=== PATIENT | female | born 1935 | race Caucasian/White ===

== ENCOUNTER 2024-07-04 19:22 | Observation (INO) | payer MEDICARE, SELFPAY ==
[2024-07-04] VITALS (8 sets, daily range): BP systolic 120–173; BP diastolic 61–85; PULSE 69–106; RESP 12–18; TEMP 36.4–37; O2SAT 97–99; BMI 26.6
--- NOTE | ~2024-07-04 | XR_ITS ---
EXAMINATION: XR HIP, RIGHT CLINICAL INFORMATION: Fall. Pain. COMPARISON: None available. TECHNIQUE: Two views of the right hip. FINDINGS: The bony structures are osteopenic. There is a right hip prosthesis in place and intact. There is no evidence for acute fracture. There is lower lumbar degenerative change. The soft tissues are unremarkable. XR/XR hip RT w PEL1V IMPRESSION: Intact right hip prosthesis. No evidence for acute fracture. Electronically signed by: Varun Dempsey MD 07/05/2024 12:02 AM EDT
--- NOTE | ~2024-07-04 | CT_ITS ---
EXAMINATION: CT HEAD WITHOUT CONTRAST CLINICAL INFORMATION: Syncope and fall with head injury. COMPARISON: None available. TECHNIQUE: Contiguous axial imaging was performed from the skull base to vertex without intravenous administration of contrast. Multiplanar reformatted images are submitted. This CT examination was performed using dose optimization techniques as appropriate, variously including the following: *Automated exposure control *Adjustment of mA and/or kV according to patient size (this includes techniques or standardized protocols for targeted exams where dose is matched to indication/reason for exam; i.e. extremities or head) *Use of iterative reconstruction technique DLP: 1069 mGy-cm (head and cervical spine) FINDINGS: There is no acute intracranial hemorrhage or evidence of territorial infarction. No abnormal mass effect or midline shift is seen. Barry to white matter differentiation is well preserved. There is marked patchy low attenuation change within the periventricular white matter spaces. The ventricles and sulci are widened, commensurate with advanced age. No extra-axial fluid collections are identified. The calvarium and scalp soft tissues are normal. The middle ear cavity and mastoid air cells are clear. The visualized paranasal sinuses are clear. CT/CT cervical spine wo IV con IMPRESSION: No acute intracranial pathology. EXAMINATION: CT CERVICAL SPINE WITHOUT CONTRAST CLINICAL INFORMATION: Syncope and fall with head injury. COMPARISON: None available. TECHNIQUE: Contiguous axial imaging was performed through the cervical spine without intravenous administration of contrast. Multiplanar reformatted images are submitted. This CT examination was performed using dose optimization techniques as appropriate, variously including the following: *Automated exposure control *Adjustment of mA and/or kV according to patient size (this includes techniques or standardized protocols for targeted exams where dose is matched to indication/reason for exam; i.e. extremities or head) *Use of iterative reconstruction technique DLP: As above FINDINGS: Vertebral body heights and alignment are normal. The disc spaces are well-maintained. There is ossification of the posterior longitudinal ligament. No acute fracture or spondylolisthesis is seen. There is multi-level mild cervical spondylosis. The posterior elements are intact. There is multi-level cervical facet arthropathy. There is no prevertebral soft tissue swelling. The dens is intact. The bilateral lung apices are clear. IMPRESSION: 1. No acute fracture or spondylolisthesis is seen. 2. The cervical disc spaces are well-maintained. 3. There is multi-level cervical endplate and facet arthropathy. Fleischner guidelines were followed. Electronically signed by: Trey Henderson MD 07/04/2024 09:53 PM EDT RP
--- NOTE | ~2024-07-04 | CT_ITS ---
EXAMINATION: CT FACIAL BONES WITHOUT CONTRAST CLINICAL INFORMATION: Fall. Head injury. COMPARISON: None available. TECHNIQUE: Noncontrast computed tomography of the facial bones was performed. This CT examination was performed using dose optimization techniques as appropriate, variously including the following: *Automated exposure control *Adjustment of mA and/or kV according to patient size (this includes techniques or standardized protocols for targeted exams where dose is matched to indication/reason for exam; i.e. extremities or head) *Use of iterative reconstruction technique DLP: 1069 mGy-cm FINDINGS: There is no acute facial bone fracture. The mandible is intact. Temporomandibular joints are intact. There is mild deformity of the left nasal bone without overlying soft tissue swelling or fluid within the nasal cavities. This deformity is likely chronic. The paranasal sinuses are well aerated. The nasal septum is deviated towards the right side. The ocular lenses are surgically absent. The orbits are otherwise within normal limits bilaterally. The visualized calvarium is intact. Visualized mastoid air cells are clear. CT/CT facial bones wo IV con IMPRESSION: No acute facial bone fracture. Electronically signed by: Alireza Vyas DO 07/04/2024 10:41 PM EDT
--- NOTE | 2024-07-04 19:56 | ECG_ITS ---
Test Reason : SYNC Blood Pressure : / mmHG Vent. Rate : 069 BPM Atrial Rate : 069 BPM P-R Int : 226 ms QRS Dur : 064 ms QT Int : 384 ms P-R-T Axes : 072 012 017 degrees QTc Int : 411 ms Sinus rhythm with 1st degree A-V block with frequent Premature ventricular complexes Low voltage QRS Septal infarct , age undetermined Abnormal ECG No previous ECGs available Referred By: Eugenia Baker Electronically Signed By:AUSTIN SEYMOUR
--- NOTE | 2024-07-04 20:12 | ED.SYNCOPE ---
HPI - Syncope General Chief Complaint: Syncope Stated Complaint: Syncope, +loc, confusion while waking up Time Seen by Provider: 07/04/24 19:55 Source: patient and EMS Mode of arrival: EMS Limitations: no limitations History of Present Illness HPI narrative: Patient is an 88-year-old female who presents emergency department via EMS coming from [facility], she was walking along a ramp and staff reportedly saw her stop, appeared out of it, and ultimately syncopized falling to the ground landing face down. She had loss of consciousness for couple of minutes. Is reportedly not on any anticoagulants. On EMS arrival she was confused but alert with a GCS of 14. At this time GCS is 15. She offers no physical complaints at this time aside from a mild posterior headache, denies having any precipitating symptoms. Denies any current or recent dizziness, lightheadedness, neck pain, neck stiffness, chest pain, shortness of breath, palpitations, numbness or tingling of the extremities, nausea, vomiting, abdominal pain, genitourinary symptoms. She admits that she has a history of ?low blood pressure?, states she is not on any medications to increase this in any way. She reports that she had breakfast and lunch today, but did not have dinner yet, she was watching the news station and lost track of time. Related Data Allergies Allergy/AdvReac Type Severity Reaction Status Date / Time mold Allergy Itchy Eyes Verified 07/04/24 19:48 Penicillins Allergy Hives Verified 07/04/24 19:48 Review of Systems Review of Systems: Yes all other systems are reviewed and are negative [facility] Past Medical History Attestation statement: The following information was validated with the patient. Source: old records reviewed Social History Social History Alcohol intake: current Alcohol intake frequency: holidays/special occasions only Smoked in Last 30 Days: No Use of substances other than those prescribed or required for medical reasons: No Advance Directives: Yes Advance Directives Information Provided: Yes Advance Directives on File: No Do you have a plan to hurt others: No Plan Physical Exam Vital Signs: Vital Signs: Last Vital Signs Temp 98.5 F 07/05/24 00:03 Pulse 71 07/05/24 00:03 Resp 12 07/05/24 00:03 BP 114/57 L 07/05/24 00:03 Pulse Ox 97 07/05/24 00:03 O2 Del Method Room Air 07/05/24 00:03 BMI result Body Mass Index 26.6 Appearance: Alert.?Oriented to person, place and time. No acute distress.?Normal affect. Head: Normocephalic, atraumatic Eyes: Pupils equal, round and reactive to light.? No periorbital ecchymosis ENT: Pharynx normal.??No tenderness upon palpation over the nasal bridge. No mastoid tenderness, negative nowak sign. TM normal bilaterally. Neck: Normal inspection.? Neck supple.??No midline cervical spine tenderness, step-offs, deformities. CVS: Heart sounds normal. Normal heart rate and rhythm.? Pulses normal.?? Respiratory: No respiratory distress.? Lung sounds clear to auscultation bilaterally?? Abdomen: Soft and non-tender. Normoactive bowel sounds. ?? Skin: Skin warm and dry.? Normal skin color.? Extremities: No lower extremity edema.? No calf ttp? Neuro: Moves all extremities spontaneously. Sensation intact bilaterally. CN II-XII intact. No focal neuro deficits. Medical Decision Making Medical Decision Making [facility] Narrative: Patient is an 88-year-old female with past medical history of essential thrombocytosis, left knee replacement, right hip replacement who presents to the emergency department for evaluation after a syncopal episode without precipitating symptoms as per HPI. She offers no physical complaints and her physical examination is benign. GCS is 15. She has no focal neurological deficits. Given age and syncopal episode with mechanism of injury plan to obtain CT head cervical spine and facial bones to exclude fracture, subluxation, ICH, SDH. Will obtain CBC to evaluate for leukocytosis/ anemia, CMP and lipase to evaluate for abnormal electrolytes /abnormal renal function/ abnormal hepatic/biliary function, EKG and troponin to evaluate for ischemia/ACS. The history is concerning as there is an absence of prodrome of symptoms, she was ambulatory when it occurred. Differential Diagnosis Differential Diagnoses: The differential diagnosis associated with the presentation includes (Arrhythmia, ACS, PE, aortic stenosis, SAH, CVA, orthostatic hypotension, vasovagal) Admission/Observation Consideration of admission/observation: Escalation of care including admission/observation considered (See narrative above and course narrative for further detail) Consult Healthcare Provider Management of the patient was discussed with: Hospitalist Dr. Bebeto waite for syncope Lab Data [facility] Lab Attestation statement: I reviewed the patient's lab results. CBC with leukopenia, macrocytic anemia, no thrombocytopenia. No electrolyte derangement. BUN mildly elevated at 19, creatinine within normal range. Magnesium is normal. LFTs overall unremarkable, alk-phos 34. High sensitive troponin below detectable limits. BNP 96 not consistent with CHF. Urinalysis without evidence of infection or microscopic hematuria. Viral serologies are negative 07/04/24 20:23 07/04/24 20:23 Labs: Lab Results 07/04/24 07/04/24 07/04/24 Range/Units 20:17 20:23 21:41 WBC 4.1 L (4.8-10.8) X10*3/uL RBC 3.14 L (4.20-5.50) X10*6/uL Hgb 12.5 (12.0-16.0) g/dl Hct 36.1 L (37.0-47.0) % MCV 115.0 H (80.0-98.0) fL MCH 39.8 H (27.0-33.0) pg MCHC 34.6 (31.0-35.0) g/dl RDW 12.4 (11.0-16.0) % Plt Count 241 (160-400) X10*3/uL MPV 8.9 L (9.4-12.3) fL Immature Gran % (Auto) 0.2 (0.0-0.4) % Neut % (Auto) 59.8 (45-73) % Lymph % (Auto) 28.6 (20-40) % [place] % (Auto) 10.2 (2-11) % Eos % (Auto) 1.0 (0-4) % Baso % (Auto) 0.2 (0-2) % Lymph # (Auto) 1.2 (1.2-4.9) X10*3/uL [place] # (Auto) 0.4 (0.1-1.2) X10*3/uL Eos # (Auto) 0.0 (0.0-0.4) X10*3/uL Baso # (Auto) 0.0 (0.0-0.2) X10*3/uL Abs Immat Gran (auto) 0.01 (0.00-0.03) X10*3/uL Absolute Neuts (auto) 2.5 (2.0-8.3) x10*3/uL Absolute Nucleated RBC 0.000 (0.0-0.012) X10*3/uL Nucleated RBC % (auto) 0.0 (0.0-0.2) /100WBC PT 10.6 L (10.9-12.4) SEC INR 0.9 (0.9-1.1) Sodium 138 (135-145) mmol/L Potassium 3.7 (3.3-5.1) mmol/L Chloride 106 (96-108) mmol/L Carbon Dioxide 26 (22-29) mmol/L Anion Gap 10 L (12-20) BUN 19 H (9-16) mg/dL Creatinine 0.65 (0.5-1.4) mg/dL Estim Creat Clear Calc 56.4 Estimated GFR > 60 Random Glucose 95 (60-115) mg/dL Calcium 9.5 (8.4-10.2) mg/dL Magnesium 2.1 (1.6-2.6) mg/dL Total Bilirubin 0.3 (0.0-1.0) mg/dL AST 21 (5-31) U/L ALT 14 (0-31) U/L Alkaline Phosphatase 34 L (39-117) U/L Troponin I High Sens < 2.7 (<3.5-17.0) ng/L B-Natriuretic Peptide 96 (<100) pg/mL Total Protein 6.7 (6.5-8.0) g/dL Albumin 3.8 (3.5-5.0) g/dL Lipase 27 (8-78) U/L Urine Color Yellow Urine Appearance Clear Urine pH 7.0 (5.0-9.0) Ur Specific [place] <= 1.005 (1.005-1.025) Urine Protein Negative (Neg-Trace) mg/dL Urine Glucose (UA) Negative (Negative) mg/dL Urine Ketones Negative (Negative) mg/dL Urine Blood Negative (Negative) Urine Nitrite Negative (Negative) Ur Leukocyte Esterase Trace H (Negative) Urine RBC 0-2 (0-2) /HPF Urine WBC 0-5 (0-5) /HPF Ur Squamous Epith Cells 0-2 (0-2) /HPF Urine Bacteria None Seen (None Seen) Hyaline Casts 0-2 (0-2) /LPF Influenza Type A (PCR) NEGATIVE (Negative) Influenza Type B (PCR) NEGATIVE (Negative) RSV RNA Qual (PCR) NEGATIVE (Negative) SARS-CoV-2 RNA (RT-PCR) NEGATIVE (Negative) Independent Interpretation I performed an independent interpretation of an: EKG and CT Scan (No ICH) Interpretation: Rate: 69 Rhythm:? Sinus rhythm first-degree AV block, PVCs, poor R-wave progression V1-V2 Normal P waves.? Prolonged KALA; 226ms.?? Normal QRS complex.?? ST T wave :??No ST elevation, no ST depression qTC: 411ms prior studies:? Prior available for review The study has been interpreted contemporaneously by me. Radiology Impression Discussion of test interpretation with radiology: I have reviewed the radiologist's reading. Radiologist Impression: CT/CT head/brain wo IV con IMPRESSION: No acute intracranial pathology. IMPRESSION: 1. No acute fracture or spondylolisthesis is seen. 2. The cervical disc spaces are well-maintained. 3. There is multi-level cervical endplate and facet arthropathy. CT/CT facial bones wo IV con IMPRESSION: No acute facial bone fracture. XR/XR hip RT w PEL1V IMPRESSION: Intact right hip prosthesis. No evidence for acute fracture. Independent Historian Clinical information obtained from an independent historian. History obtained from or confirmed by: EMS and Other (Daughter) Discharge Plan Discharge Clinical Impression: Syncope Patient Disposition: Admitted As Inpatient Print Language: Occitan
[2024-07-04 20:30] LABS: MANUAL DIFF FLAG NO
[2024-07-04 20:35] LABS: Basophils Percent Auto 0.2 % (0-2); Hematocrit 36.1 % (37.0-47.0); Hemoglobin 12.5 g/dl (12.0-16.0); Imm Gran Abs Auto 0.01 X10*3/uL (0.00-0.03); Imm Gran Pct Auto 0.2 % (0.0-0.4); Lymphocytes Absolute Auto 1.2 X10*3/uL (1.2-4.9); Lymphocytes Percent Auto 28.6 % (20-40); Mean Corpuscular HGB Conc 34.6 g/dl (31.0-35.0); Mean Corpuscular Hemoglobin 39.8 pg (27.0-33.0); Mean Platelet Volume 8.9 fL (9.4-12.3); Monocytes Absolute Auto 0.4 X10*3/uL (0.1-1.2); Monocytes Percent Auto 10.2 % (2-11); Neutrophils Absolute Auto 2.5 x10*3/uL (2.0-8.3); Neutrophils Percent Auto 59.8 % (45-73); Platelet Count 241 X10*3/uL (160-400); Red Blood Count 3.14 X10*6/uL (4.20-5.50); Red Cell Distribution Width 12.4 % (11.0-16.0); White Blood Count 4.1 X10*3/uL (4.8-10.8)
[2024-07-04 20:43] LABS: INTERNATIONAL NORM RATIO 0.9 (0.9-1.1); Prothrombin Time 10.6 SEC (10.9-12.4)
[2024-07-04 20:55] LABS: Alanine Aminotransferase 14 U/L (0-31); Albumin Level 3.8 g/dL (3.5-5.0); Alkaline Phosphatase 34 U/L (39-117); Anion Gap 10 (12-20); Aspartate Amino Transferase 21 U/L (5-31); Bilirubin Total 0.3 mg/dL (0.0-1.0); Blood Urea Nitrogen 19 mg/dL (9-16); Calcium 9.5 mg/dL (8.4-10.2); Carbon Dioxide 26 mmol/L (22-29); Chloride 106 mmol/L (96-108); Creatinine Clr Calc Pharmacy 56.4; Estimated Glomerular Filt Rate > 60; Glucose Random 95 mg/dL (60-115); Lipase 27 U/L (8-78); Magnesium 2.1 mg/dL (1.6-2.6); Potassium 3.7 mmol/L (3.3-5.1); Sodium 138 mmol/L (135-145); Total Protein 6.7 g/dL (6.5-8.0)
[2024-07-04 20:58] LABS: B Type Natriuretic Peptide 96 pg/mL (<100)
[2024-07-04 21:10] LABS: Troponin-I High Sensitivity < 2.7 ng/L (<3.5-17.0)
[2024-07-04 21:27] LABS: Influenza A PCR NEGATIVE (Negative); Influenza B PCR NEGATIVE (Negative); Resp Syncy Virus RNA Qual PCR NEGATIVE (Negative); SARS COV2 PCR INHOUSE NEGATIVE (Negative)
[2024-07-04 21:54] LABS: Appearance Urine Clear; Color Urine Yellow; Glucose Urine UA Negative (Negative); Leukocyte Esterase Urine Trace (Negative); Nitrite Urine Negative (Negative); Specific Gravity - Urine <= 1.005 (1.005-1.025); UMIC TRIGGER UACC YES; Urine Blood Negative (Negative); Urine Ketones Negative (Negative); Urine Protein Negative (Neg-Trace)
[2024-07-04 21:59] LABS: Bacteria Urine None Seen (None Seen); Hyaline Casts Urine 0-2 /LPF (0-2); RBC Urine 0-2 /HPF (0-2); Squamous Epithelial Cell Urine 0-2 /HPF (0-2); WBC Urine 0-5 /HPF (0-5)
--- NOTE | 2024-07-04 22:45 | PC.NURSE ---
Patient ambulated to bathroom with steady gait. pt reports some slight dizziness. Patient reports tenderness to right buttocks. MD aware
--- NOTE | 2024-07-04 23:43 | PC.NURSE ---
this rn assumed care of pt, pt resting in stretcher, no acute distress noted, pt returned from CT at this time.
[2024-07-05] VITALS (10 sets, daily range): BP systolic 110–139; BP diastolic 43–66; PULSE 67–89; RESP 12–20; TEMP 36.3–37.2; O2SAT 92–98; BMI 26.6; BMI 28.6
--- NOTE | 2024-07-05 01:04 | P.HPHOSP_ITS ---
History of Present Illness Date of Service: 07/05/24 Chief Complaint: Syncope This is a 88-year-old female with pertinent history of essential thrombocytosis, left knee replacement, right hip replacement, mood disorder who presents to the emergency department for evaluation after syncopal episode. Patient lives at independent living facility. She states that she was walking along a ramp and next thing she knew she was on the floor. Staff reportedly saw her passing out and falling on the floor. Regain consciousness without any confusion. No jerking movement of extremities. She denied dizziness or lightheadedness prior to the fall. No chest pain or palpitations prior to the fall. No vomiting, diarrhea or fluid loss. Denies poor p.o. intake. No fever, chills, shortness of breath, abdominal pain, changes in urinary or bowel habits. In the emergency department, orthostatic vital signs noted to be positive. Review of Systems 2 Constitutional: Constitutional: Reports no additional constitutional complaints Cardiovascular: Cardiovascular: Reports no additional cardiovascular complaints and Reports syncope Respiratory: Respiratory: Reports no additional respiratory complaints Gastrointestinal: Gastrointestinal: Reports no additional gastrointestinal complaints Genitourinary: Genitourinary: Reports no additional female genitourinary complaints Neurologic: Reports syncope [facility] Medical History Mood disorder Essential thrombocytosis Pertinent family history: No family history of early CAD Social History Alcohol intake: current Alcohol intake frequency: holidays/special occasions only Patient Tobacco Use Status: Never used Tobacco Meds Allergies Allergy/AdvReac Type Severity Reaction Status Date / Time mold Allergy Itchy Eyes Verified 07/04/24 19:48 Penicillins Allergy Hives Verified 07/04/24 19:48 Physical Exam 2 Vital Signs and Narrative: Vital Signs: Last Vital Signs Temp 98.5 F 07/05/24 00:03 Pulse 71 07/05/24 00:03 Resp 12 07/05/24 00:03 BP 114/57 L 07/05/24 00:03 Pulse Ox 97 07/05/24 00:03 O2 Del Method Room Air 07/05/24 00:03 BMI result Body Mass Index 26.6 Elderly female lying in bed in no distress Neck supple, no JVD Regular rate and rhythm, S1-S2 heard Regular breath sounds bilaterally, no wheezing or crackles appreciated Abdomen soft nontender, no guarding, no rigidity Patient is awake, alert and oriented to self, place, time and person ; no focal motor deficit Psych: Normal mood No pedal edema Results Labs 07/04/24 20:23 07/04/24 20:23 Labs: Laboratory Results - last 24 hr 07/04/24 07/04/24 07/04/24 20:17 20:23 21:41 MCV 115.0 H MCH 39.8 H MCHC 34.6 RDW 12.4 Plt Count 241 MPV 8.9 L Immature Gran % (Auto) 0.2 Neut % (Auto) 59.8 Lymph % (Auto) 28.6 [place] % (Auto) 10.2 Eos % (Auto) 1.0 Baso % (Auto) 0.2 Lymph # (Auto) 1.2 [place] # (Auto) 0.4 Eos # (Auto) 0.0 Baso # (Auto) 0.0 Abs Immat Gran (auto) 0.01 Absolute Neuts (auto) 2.5 Absolute Nucleated RBC 0.000 Nucleated RBC % (auto) 0.0 PT 10.6 L INR 0.9 Anion Gap 10 L Estim Creat Clear Calc 56.4 Estimated GFR > 60 Random Glucose 95 Calcium 9.5 Magnesium 2.1 Total Bilirubin 0.3 AST 21 ALT 14 Alkaline Phosphatase 34 L Troponin I High Sens < 2.7 B-Natriuretic Peptide 96 Total Protein 6.7 Albumin 3.8 Lipase 27 Urine Color Yellow Urine Appearance Clear Urine pH 7.0 Ur Specific [place] <= 1.005 Urine Protein Negative Urine Glucose (UA) Negative Urine Ketones Negative Urine Blood Negative Urine Nitrite Negative Ur Leukocyte Esterase Trace H Urine RBC 0-2 Urine WBC 0-5 Ur Squamous Epith Cells 0-2 Urine Bacteria None Seen Hyaline Casts 0-2 Influenza Type A (PCR) NEGATIVE Influenza Type B (PCR) NEGATIVE RSV RNA Qual (PCR) NEGATIVE SARS-CoV-2 RNA (RT-PCR) NEGATIVE Imaging Radiologist's Impressions: Impressions Face CT 07/04/24 20:10 IMPRESSION: No acute facial bone fracture. Electronically signed by: Alireza Vyas DO 07/04/2024 10:41 PM EDT RP Cervical Spine CT 07/04/24 20:15 IMPRESSION: No acute intracranial pathology. EXAMINATION: CT CERVICAL SPINE WITHOUT CONTRAST CLINICAL INFORMATION: Syncope and fall with head injury. COMPARISON: None available. TECHNIQUE: Contiguous axial imaging was performed through the cervical spine without intravenous administration of contrast. Multiplanar reformatted images are submitted. This CT examination was performed using dose optimization techniques as appropriate, variously including the following: *Automated exposure control *Adjustment of mA and/or kV according to patient size (this includes techniques or standardized protocols for targeted exams where dose is matched to indication/reason for exam; i.e. extremities or head) *Use of iterative reconstruction technique DLP: As above FINDINGS: Vertebral body heights and alignment are normal. The disc spaces are well-maintained. There is ossification of the posterior longitudinal ligament. No acute fracture or spondylolisthesis is seen. There is multi-level mild cervical spondylosis. The posterior elements are intact. There is multi-level cervical facet arthropathy. There is no prevertebral soft tissue swelling. The dens is intact. The bilateral lung apices are clear. IMPRESSION: 1. No acute fracture or spondylolisthesis is seen. 2. The cervical disc spaces are well-maintained. 3. There is multi-level cervical endplate and facet arthropathy. Fleischner guidelines were followed. Electronically signed by: Trey Henderson MD 07/04/2024 09:53 PM EDT RP Head CT 07/04/24 20:15 IMPRESSION: No acute intracranial pathology. EXAMINATION: CT CERVICAL SPINE WITHOUT CONTRAST CLINICAL INFORMATION: Syncope and fall with head injury. COMPARISON: None available. TECHNIQUE: Contiguous axial imaging was performed through the cervical spine without intravenous administration of contrast. Multiplanar reformatted images are submitted. This CT examination was performed using dose optimization techniques as appropriate, variously including the following: *Automated exposure control *Adjustment of mA and/or kV according to patient size (this includes techniques or standardized protocols for targeted exams where dose is matched to indication/reason for exam; i.e. extremities or head) *Use of iterative reconstruction technique DLP: As above FINDINGS: Vertebral body heights and alignment are normal. The disc spaces are well-maintained. There is ossification of the posterior longitudinal ligament. No acute fracture or spondylolisthesis is seen. There is multi-level mild cervical spondylosis. The posterior elements are intact. There is multi-level cervical facet arthropathy. There is no prevertebral soft tissue swelling. The dens is intact. The bilateral lung apices are clear. IMPRESSION: 1. No acute fracture or spondylolisthesis is seen. 2. The cervical disc spaces are well-maintained. 3. There is multi-level cervical endplate and facet arthropathy. Fleischner guidelines were followed. Electronically signed by: Trey Henderson MD 07/04/2024 09:53 PM EDT RP Hip/Pelvis X-Ray 07/04/24 23:15 IMPRESSION: Intact right hip prosthesis. No evidence for acute fracture. Electronically signed by: Varun Dempsey MD 07/05/2024 12:02 AM EDT RP Assessment and Plan (1) Syncope: Status: Acute Plan This is a 88-year-old female with pertinent history of essential thrombocytosis, left knee replacement, right hip replacement, mood disorder who presents to the emergency department for evaluation after syncopal episode. #. Syncope, orthostatic: Will admit patient with cardiac monitoring. Orthostatic vital signs positive in the ER. Will resuscitate with IV crystalloids and repeat orthostatics in a.m. #. Essential thrombocytosis: On hydroxyurea #. Mood disorder: On venlafaxine Med rec pending DVT prophylaxis: Lovenox DNR/DNI. Discussed with patient and family at bedside Quality Stroke Does the patient have a stroke diagnosis?: No VTE Prior VTE?: No VTE Risk Level:: Medical - moderate - high VTE Device Contraindication: Treatment Not Indicated VTE Drug Contraindication: N/A - Med Ordered
[2024-07-05] MEDS: Acetaminophen 325 MG TABLET 650 MG PO (01:27)
[2024-07-05] MEDS: 0.9 % Sodium Chloride 1,000 ML 999 ML IV (01:28)
--- NOTE | 2024-07-05 01:47 | PC.NURSE ---
pt reports pain 6/10 in her r hip. pt requesting tylenol at this time, pt medicated per dec, tolerated well with water.
--- NOTE | 2024-07-05 01:48 | PC.NURSE ---
pt assisted to bedside commode, tolerated well. pt denies dizziness/SOB.
--- NOTE | 2024-07-05 02:27 | PC.NURSE ---
this rn placed pt in hospital bed for comfort. pt reports that pain has subsided.
[2024-07-05 05:27] LABS: Hematocrit 32.7 % (37.0-47.0); Hemoglobin 11.3 g/dl (12.0-16.0); Mean Corpuscular HGB Conc 34.6 g/dl (31.0-35.0); Mean Corpuscular Hemoglobin 40.2 pg (27.0-33.0); Mean Corpuscular Volume 116.4 fL (80.0-98.0); Mean Platelet Volume 9.2 fL (9.4-12.3); Platelet Count 229 X10*3/uL (160-400); Red Blood Count 2.81 X10*6/uL (4.20-5.50); Red Cell Distribution Width 12.3 % (11.0-16.0); White Blood Count 5.1 X10*3/uL (4.8-10.8)
[2024-07-05 05:37] LABS: Anion Gap 10 (12-20); Blood Urea Nitrogen 14 mg/dL (9-16); Calcium 8.6 mg/dL (8.4-10.2); Carbon Dioxide 25 mmol/L (22-29); Chloride 109 mmol/L (96-108); Creatinine Clr Calc Pharmacy 50.9; Estimated Glomerular Filt Rate > 60; Glucose Random 98 mg/dL (60-115); Potassium 3.8 mmol/L (3.3-5.1); Sodium 140 mmol/L (135-145)
[2024-07-05] MEDS: 0.9 % Sodium Chloride Flush 3 ML SYRINGE IVFLUSH ×2 (08:33→16:23)
[2024-07-05] MEDS: Enoxaparin Sodium 40 MG/0.4 ML SYRINGE SUBCUT (08:33)
--- NOTE | 2024-07-05 08:44 | PHA.MEDREC ---
Pharmacy Consult ? Medication Reconciliation Pharmacy has completed the medication reconciliation. Spoke to patient at bedside, she confirmed her medications with me which matched fill history and stated she takes a baby aspirin and multivitamin, so these were added to home med list.
--- NOTE | 2024-07-05 09:14 | MHC.CM.PN ---
MARE 07/05. Pt lives in the independent living facility on [address] in [place]. Pt uses a walker. Pt states her son is her HCP, copy requested. Pts son will transport her home at discharge. PCP: Chiquis SAUL
--- NOTE | 2024-07-05 10:39 | MHC.CM.PN ---
MARE 07/05. Pt self-care, lives at [facility] in [place]. Pts daughter will transport her home at discharge. HCP requested. PCP: Chelsea SAUL
--- NOTE | 2024-07-05 11:14 | PM.EVENT ---
Event Note Date of Service: 07/05/24 Event Note: 88-year-old female with pertinent history of essential thrombocytosis, left knee replacement, right hip replacement, mood disorder who presents to the emergency department for evaluation after syncopal episode. Patient lives at independent living facility. She states that she was walking along a ramp and next thing she knew she was on the floor. Staff reportedly saw her passing out and falling on the floor. Regain consciousness without any confusion. No jerking movement of extremities. She denied dizziness or lightheadedness prior to the fall. No chest pain or palpitations prior to the fall. No vomiting, diarrhea or fluid loss. Denies poor p.o. intake. No fever, chills, shortness of breath, abdominal pain, changes in urinary or bowel habits. Noted to have positive orthostatic hypotension. At present patient denies headache lightheadedness dizziness, no nausea vomiting, no chest pain, no palpitations, daughter at bedside. On examination awake alert x3 Neck no JVD Lungs bibasilar crackles Heart regular Extremities no edema 88-year-old female with pertinent history of essential thrombocytosis, left knee replacement, right hip replacement, mood disorder who presents to the emergency department for evaluation after syncopal episode. #. Syncope, orthostatic: Treated with 1 L of IV fluids, repeat orthostatic BP is normal Continue tele monitor CT head/cervical spine and rt hip showed no fractures #. Essential thrombocytosis: Stable platelet count 229, Continue hydroxyurea. #. Mood disorder: On venlafaxine Med rec done DVT prophylaxis: Lovenox DNR/DNI. Discussed with patient and family at bedside Time Spent With Patient Time: Total time managing care of this patient today ____ minutes.
--- NOTE | 2024-07-05 14:39 | P.DS_ITS ---
DS: Providers Provider Date of Service: 07/05/24 Date of admission: 07/05/24 01:02 Date of discharge: 07/06/24 Primary care physician: Chiquis Jewell NP DS: Diagnosis Discharge Diagnosis (1) Syncope: Status: Acute DS: Summary Hospital Course Hospital Course: Date of Service: 07/05/24 Chief Complaint: Syncope This is a 88-year-old female with pertinent history of essential thrombocytosis, left knee replacement, right hip replacement, mood disorder who presents to the emergency department for evaluation after syncopal episode. Patient lives at independent living facility. She states that she was walking along a ramp and next thing she knew she was on the floor. Staff reportedly saw her passing out and falling on the floor. Regain consciousness without any confusion. No jerking movement of extremities. She denied dizziness or lightheadedness prior to the fall. No chest pain or palpitations prior to the fall. No vomiting, diarrhea or fluid loss. Denies poor p.o. intake. No fever, chills, shortness of breath, abdominal pain, changes in urinary or bowel habits. In the emergency department, orthostatic vital signs noted to be positive. 88-year-old female with pertinent history of essential thrombocytosis, left knee replacement, right hip replacement, mood disorder who presents to the emergency department for evaluation after syncopal episode, and admitted to telemetry with the diagnosis of orthostatic Syncope, Treated with 1 L of IV fluids, repeat orthostatic BP is normal, CT head/cervical spine and rt hip showed no fractures , UA unremarkable, tele monitor showed no arrhythmia, no seizure-like activity was noted, had normal neuro examination therefore she is being discharged home with recommendation to stay hydrated and get up slowly from sitting position. #. Essential thrombocytosis: Stable platelet count 229, Continue hydroxyurea and aspirin. #. Mood disorder: On venlafaxine Time Attestation Discharge Coordination Time (in mins): 36 Quality: Safe Use of Opioids Does Pt have an Active Cancer Diagnosis on the Problem List?: No Quality: Stroke Does the patient have a stroke diagnosis?: No Physical Exam Vital Signs: Vital Signs: Last Vital Signs Temp 98.3 F 07/05/24 11:21 Pulse 72 07/05/24 11:21 Resp 18 07/05/24 11:21 BP 117/61 07/05/24 11:21 Pulse Ox 97 07/05/24 11:21 O2 Del Method Room Air 07/05/24 11:21 BMI result Body Mass Index 28.6 Const: Other: General resting comfortably in no acute distress. Neck no JVD. CVS regular rate rhythm, Respiratory lungs clear to auscultation, no respiratory distress, no wheeze, no rhonchi. Gastrointestinal abdomen soft, non tender, bowel sounds audible Extremities no edema. Neuro non focal Skin no rash Psych appropriate affect DS: Data Data Completed and Pending Labs on day of discharge: Laboratory Results - last 24 hr 07/04/24 07/04/24 07/04/24 20:17 20:23 21:41 WBC 4.1 L RBC 3.14 L Hgb 12.5 Hct 36.1 L MCV 115.0 H MCH 39.8 H MCHC 34.6 RDW 12.4 Plt Count 241 MPV 8.9 L Immature Gran % (Auto) 0.2 Neut % (Auto) 59.8 Lymph % (Auto) 28.6 Finney % (Auto) 10.2 Eos % (Auto) 1.0 Baso % (Auto) 0.2 Lymph # (Auto) 1.2 Finney # (Auto) 0.4 Eos # (Auto) 0.0 Baso # (Auto) 0.0 Abs Immat Gran (auto) 0.01 Absolute Neuts (auto) 2.5 Absolute Nucleated RBC 0.000 Nucleated RBC % (auto) 0.0 Smear Path Review SEE NOTE PT 10.6 L INR 0.9 Sodium 138 Potassium 3.7 Chloride 106 Carbon Dioxide 26 Anion Gap 10 L BUN 19 H Creatinine 0.65 Estim Creat Clear Calc 56.4 Estimated GFR > 60 Random Glucose 95 Calcium 9.5 Magnesium 2.1 Total Bilirubin 0.3 AST 21 ALT 14 Alkaline Phosphatase 34 L Troponin I High Sens < 2.7 B-Natriuretic Peptide 96 Total Protein 6.7 Albumin 3.8 Lipase 27 Urine Color Yellow Urine Appearance Clear Urine pH 7.0 Ur Specific [place] <= 1.005 Urine Protein Negative Urine Glucose (UA) Negative Urine Ketones Negative Urine Blood Negative Urine Nitrite Negative Ur Leukocyte Esterase Trace H Urine RBC 0-2 Urine WBC 0-5 Ur Squamous Epith Cells 0-2 Urine Bacteria None Seen Hyaline Casts 0-2 Influenza Type A (PCR) NEGATIVE Influenza Type B (PCR) NEGATIVE RSV RNA Qual (PCR) NEGATIVE SARS-CoV-2 RNA (RT-PCR) NEGATIVE 07/05/24 04:11 WBC 5.1 RBC 2.81 L Hgb 11.3 L Hct 32.7 L MCV 116.4 H MCH 40.2 H MCHC 34.6 RDW 12.3 Plt Count 229 MPV 9.2 L Immature Gran % (Auto) Neut % (Auto) Lymph % (Auto) Finney % (Auto) Eos % (Auto) Baso % (Auto) Lymph # (Auto) Finney # (Auto) Eos # (Auto) Baso # (Auto) Abs Immat Gran (auto) Absolute Neuts (auto) Absolute Nucleated RBC 0.000 Nucleated RBC % (auto) 0.0 Smear Path Review PT INR Sodium 140 Potassium 3.8 Chloride 109 H Carbon Dioxide 25 Anion Gap 10 L BUN 14 Creatinine 0.72 Estim Creat Clear Calc 50.9 Estimated GFR > 60 Random Glucose 98 Calcium 8.6 D Magnesium Total Bilirubin AST ALT Alkaline Phosphatase Troponin I High Sens B-Natriuretic Peptide Total Protein Albumin Lipase Urine Color Urine Appearance Urine pH Ur Specific [place] Urine Protein Urine Glucose (UA) Urine Ketones Urine Blood Urine Nitrite Ur Leukocyte Esterase Urine RBC Urine WBC Ur Squamous Epith Cells Urine Bacteria Hyaline Casts Influenza Type A (PCR) Influenza Type B (PCR) RSV RNA Qual (PCR) SARS-CoV-2 RNA (RT-PCR) Discharge Plan Discharge Anticipated Discharge Date/Time: 07/05/24 14:36 Patient Disposition: Home, Self-Care Discharge Diagnosis: syncope Referrals: Chiquis Jewell NP [Primary Care Provider] - 1 Week Discharge Medications: Continued hydroxyurea 500 mg capsule 1,000 mg PO DAILY venlafaxine 37.5 mg capsule,extended release 24hr 37.5 mg PO DAILY multivitamin Tablet 1 tab PO DAILY aspirin 81 mg Tablet,Delayed Release (Dr/Ec) 81 mg PO DAILY Discharge Orders: Discharge Order (Routine); Ordered 07/06/24 Ordered By: Tom Perdomo Diet: Advance to usual diet Activity on Discharge: As tolerated Stand Alone Forms: Patient Portal Discharge page Print Language: Danish Care Plan Goals: orthostatic syncope treated with IV fluids repeat orthostatic blood pressures unremarkable Tele monitor showed no arrhythmias Recommend to get up slowly from sitting position, stay hydrated Health Concerns: Essential thrombocytosis continue home medication Plan of Treatment: Follow-up with primary care physician call for appointment Assessment: As above
[2024-07-06] VITALS: BP 130/60; PULSE 72; RESP 18; TEMP 37.1; O2SAT 94
[2024-07-06 04:00] VITALS: BP 127/58; PULSE 74; RESP 18; TEMP 36.6; O2SAT 93
[2024-07-06 06:59] VITALS: BP 126/58; PULSE 70; RESP 18; TEMP 36.4; O2SAT 94
[2024-07-06] MEDS: Aspirin Enteric Coated 81 MG TABLET.DR PO (10:48)
[2024-07-06] MEDS: Enoxaparin Sodium 40 MG/0.4 ML SYRINGE SUBCUT (10:48)
[2024-07-06] MEDS: Multivitamin TABLET 1 TAB PO (10:48)
[2024-07-06] MEDS: 0.9 % Sodium Chloride Flush 3 ML SYRINGE IVFLUSH (10:49)
--- NOTE | 2024-07-06 10:54 | MHC.CM.PN ---
Pt is medically cleared for discharge home self-care, pts daughter to transport her home.
[2024-07-06 11:21] VITALS: BP 135/60; PULSE 78; RESP 18; TEMP 36.6; O2SAT 96
== END 2024-07-06 12:20 | disposition home or self-care (01) ==
LOC: HO.ED 07-05 00:39 → HO.EDOVER 07-05 01:07 → HO.IMC 07-05 07:07
PROVIDERS: Nurse Practitioner Family; Admitting Provider Student in an Organized Health Care Education/Training Program; Emergency Provider Emergency Medicine Emergency Medical Services; PCP Nurse Practitioner Adult Health; Visit Provider Hospitalist
DX: I95.1 Orthostatic hypotension (principal); R40.2410 Glasgow coma scale score 13-15, unspecified time; R51.9 Headache, unspecified; D47.3 Essential (hemorrhagic) thrombocythemia; F39 Unspecified mood [affective] disorder; Z96.652 Presence of left artificial knee joint; Z91.81 History of falling; Z96.641 Presence of right artificial hip joint; Z79.899 Other long term (current) drug therapy; Z03.818 Encounter for observation for suspected exposure to other biological agents ruled out
CPT/HCPCS: 0241U; 36415; 70450; 70486; 72125; 73502; 80048; 80053; 81001; 83690; 83735; 83880; 84484; 85025; 85027; 85610; 93005; 96360; 96361; 96372; 99222; 99285; J1650

== ENCOUNTER → 2024-07-05 01:02 | Outpatient (BNV) | payer MEDICARE, SELFPAY | PROVIDERS: Admitting Provider Student in an Organized Health Care Education/Training Program; Emergency Provider Emergency Medicine Emergency Medical Services; PCP Nurse Practitioner Adult Health; Visit Provider Student in an Organized Health Care Education/Training Program | DX: R55 Syncope and collapse (principal) | CPT/HCPCS: 99235; 99239; 99499 ==

== ENCOUNTER 2024-09-22 17:30 | Emergency (ER) | payer MEDICARE, SELFPAY ==
--- NOTE | ~2024-09-22 | CT_ITS ---
EXAM: CT scan of the head and cervical spine. INDICATION: trauma TECHNIQUE: A noncontrast CT scan was performed from the skull base to the vertex. A noncontrast CT scan of the cervical spine was performed from the base of the skull through T1 at 2.5 mm and 1.25 mm collimation. Coronal and sagittal reformats were obtained at the acquisition workstation. This CT examination was performed using dose optimization techniques as appropriate, variously including the following: *Automated exposure control *Adjustment of mA and/or kV according to patient size (this includes techniques or standardized protocols for targeted exams where dose is matched to indication/reason for exam; i.e. extremities or head) *Use of iterative reconstruction technique DLP: 580 and 216 mGy-cm COMPARISON: 07/04/2024 FINDINGS: Head: There is no evidence of acute intracranial hemorrhage or territorial infarction. Barry-white matter differentiation is preserved. No abnormal mass effect or midline shift. No extra-axial fluid collections. 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 The ventricles and sulcal spaces are proportional without hydrocephalus. Proportional prominence of the ventricles and sulcal spaces. No acute osseous or soft tissue abnormalities. The mastoid air cells and visualized portions of the paranasal sinuses are well aerated. Cervical Spine: The atlantooccipital and atlantoaxial articulations remain well aligned. Mild degenerative disc disease and facet arthropathy.. Otherwise, there is anatomic alignment of the vertebral bodies and posterior elements. No evidence of acute fracture or subluxation. The vertebral body heights and disc spaces are maintained. There is no prevertebral soft tissue swelling. The thyroid gland and remaining cervical soft tissues are normal in appearance. The lung apices demonstrate no abnormalities. CT/CT head/brain wo IV con IMPRESSION: No acute intracranial pathology. No acute fracture subluxation cervical spine. Electronically signed by: Mikey Beauchamp MD 09/22/2024 06:43 PM [facility]
--- NOTE | ~2024-09-22 | CT_ITS ---
EXAMINATION: CT PELVIS WITHOUT CONTRAST CLINICAL INFORMATION: Evaluate for hip fracture or other pelvic fracture. COMPARISON: X-ray of the right hip and pelvis 09/22/2024. TECHNIQUE: Helical scanning was performed with submillimeter collimation through the pelvis. Sagittal and coronal multiplanar 2-D reconstructions were obtained. This CT examination was performed using dose optimization techniques as appropriate, variously including the following: *Automated exposure control *Adjustment of mA and/or kV according to patient size (this includes techniques or standardized protocols for targeted exams where dose is matched to indication/reason for exam; i.e. extremities or head) *Use of iterative reconstruction technique DLP: 373 mGy-cm FINDINGS: Osseous structures: There is a minimally displaced oblique fracture of the superior ramus extending into the symphysis pubis. Similarly there is a minimally displaced fracture at the junction of the inferior ramus with the symphysis pubis. There is chondrocalcinosis and degenerative changes of the symphysis pubis. There is slight increased density in the distal right sacrum perhaps related to old healed insufficiency fracture. Right total hip arthroplasty with components in the usual and unchanged position without periprosthetic fracture. Left hip: Chondrocalcinosis. No fracture or arthrosis. Sacroiliac joints normal. Spondylosis of lumbosacral spine with prominent bilateral facet arthrosis at the L4-L5 and L5-S1 level and degenerative disc changes at L4-L5. Vascular: [id number] calcific atherosclerotic changes. Bowel: Scattered diverticulosis without diverticulitis of the distal descending and sigmoid colon. Urinary tract: Distal ureters normal. Bladder distended. Pelvic viscera: Unremarkable. Muscles/tendons: Unremarkable. Subcutaneous soft tissues: Unremarkable. CT/CT pelvis wo IV con Impression: 1. Minimally displaced fractures of the right superior and inferior pubic rami extending to the symphysis pubis likely acute or subacute. 2. Slight increased density in the distal right sacrum perhaps related to old healed insufficiency fracture. 3. Right total hip arthroplasty without periprosthetic fracture. 4. Spondylosis of lumbosacral spine. 5. Chondrocalcinosis of the left hip. 6. Diverticulosis without diverticulitis. 7. Calcific atherosclerotic disease. Electronically signed by: Jacob Edmondson MD 09/23/2024 02:30 PM [facility]
--- NOTE | ~2024-09-22 | XR_ITS ---
EXAMINATION: XR HIP, RIGHT AP pelvis CLINICAL INFORMATION: trauma COMPARISON: Pelvis and right hip series June 2024 TECHNIQUE: Two views of the right hip. AP pelvis FINDINGS: Right hip and pelvis: There is a minimally displaced fracture of the right superior ramus extending into the right pubic bone which is new compared with prior x-ray Right total hip arthroplasty noted with components in usual in unchanged position. No periprostatic fracture or suspicious area of lucency. Chondrocalcinosis in the left hip Remaining bone and joints in the pelvis are normal. XR/XR hip RT w PEL1V IMPRESSION: 1. Right hip and pelvis: Minimally displaced fracture of the right superior ramus extending into the right pubic bone. 2. Right total hip arthroplasty without complication by x-ray. Electronically signed by: Jacob Edmondson MD 09/22/2024 06:33 PM [facility]
--- NOTE | ~2024-09-22 | CT_ITS ---
EXAM: CT scan of the head and cervical spine. INDICATION: trauma TECHNIQUE: A noncontrast CT scan was performed from the skull base to the vertex. A noncontrast CT scan of the cervical spine was performed from the base of the skull through T1 at 2.5 mm and 1.25 mm collimation. Coronal and sagittal reformats were obtained at the acquisition workstation. This CT examination was performed using dose optimization techniques as appropriate, variously including the following: *Automated exposure control *Adjustment of mA and/or kV according to patient size (this includes techniques or standardized protocols for targeted exams where dose is matched to indication/reason for exam; i.e. extremities or head) *Use of iterative reconstruction technique DLP: 580 and 216 mGy-cm COMPARISON: 07/04/2024 FINDINGS: Head: There is no evidence of acute intracranial hemorrhage or territorial infarction. Barry-white matter differentiation is preserved. No abnormal mass effect or midline shift. No extra-axial fluid collections. 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 The ventricles and sulcal spaces are proportional without hydrocephalus. Proportional prominence of the ventricles and sulcal spaces. No acute osseous or soft tissue abnormalities. The mastoid air cells and visualized portions of the paranasal sinuses are well aerated. Cervical Spine: The atlantooccipital and atlantoaxial articulations remain well aligned. Mild degenerative disc disease and facet arthropathy.. Otherwise, there is anatomic alignment of the vertebral bodies and posterior elements. No evidence of acute fracture or subluxation. The vertebral body heights and disc spaces are maintained. There is no prevertebral soft tissue swelling. The thyroid gland and remaining cervical soft tissues are normal in appearance. The lung apices demonstrate no abnormalities. CT/CT cervical spine wo IV con IMPRESSION: No acute intracranial pathology. No acute fracture subluxation cervical spine. Electronically signed by: Mikey Beauchamp MD 09/22/2024 06:[address] [facility]
[2024-09-22 17:43] VITALS: BP 150/80; PULSE 84; O2SAT 96; BMI 27.8
--- NOTE | 2024-09-22 17:53 | ED.FALL ---
HPI - Fall General Chief Complaint: Fall Stated Complaint: fall, r hip pain Time Seen by Provider: 09/22/24 17:35 Source: patient Limitations: no limitations History of Present Illness ED Provider: Roxann Kendall PA-C HPI Narrative: 88-year-old female with a history of mood disorder and essential thrombocytosis, on aspirin daily, presents after fall at home. Patient states she tripped over rug landing onto her right side. Patient did strike the right side of her head on a chair, she sustained a laceration. There was no loss of consciousness, the patient was able to get up off the floor and ambulate to some degree. Patient having severe right hip pain When she attempts to bear weight. Denies headache, neck pain, dizziness, nausea, vomiting. Denies preceding palpitations, chest pain or shortness of breath. Tetanus not up-to-date. Related Data Home Medications ?Medication ?Instructions ?Recorded ?Confirmed aspirin 81 mg tablet,delayed 81 mg PO DAILY 07/05/24 07/05/24 release hydroxyurea 500 mg capsule 1,000 mg PO DAILY 07/05/24 07/05/24 multivitamin 1 tab PO DAILY 07/05/24 07/05/24 venlafaxine 37.5 mg 37.5 mg PO DAILY 07/05/24 07/05/24 capsule,extended release 24 hr Allergies Allergy/AdvReac Type Severity Reaction Status Date / Time mold Allergy Itchy Eyes Verified 09/22/24 17:45 Penicillins Allergy Hives Verified 09/22/24 17:45 Review of Systems Review of Systems: Yes all other systems are reviewed and are negative Constitutional: Constitutional: Denies fatigue, Denies fever(s), Reports frequent falls and Denies headache(s) ENT: Denies dizziness and Denies headache(s) Cardiovascular: Cardiovascular: Denies chest pain, Denies syncope, Denies irregular heart rhythm and Denies dyspnea Respiratory: Respiratory: Denies dyspnea Gastrointestinal: Gastrointestinal: Denies abdominal pain Neurologic: Denies dizziness, Denies syncope, Reports frequent falls and Denies headache(s) Endocrine: Endocrine: Denies fatigue PMFSH Past Medical History Attestation statement: The following information was validated with the patient. Medical History Mood disorder Essential thrombocytosis Social History Social History Alcohol intake: current Alcohol intake frequency: holidays/special occasions only Patient Tobacco Use Status: Never used Tobacco Advance Directives: No Advance Directives Information Provided: No Do you have a plan to hurt others: No Plan service: No Physical Exam Vital Signs: Vital Signs: Last Vital Signs Temp 97.5 F 09/22/24 22:57 Pulse 73 09/22/24 22:57 Resp 20 09/22/24 22:57 BP 138/77 09/22/24 22:57 Pulse Ox 94 09/22/24 22:57 O2 Del Method Room Air 09/22/24 22:57 BMI result Body Mass Index 27.8 Const: Other: Alert, overall well-appearing, Orientation/consciousness: patient oriented x3 Resp: Other: nonlabored respirations Cardio: Other: normal peripheral perfusion Skin: Other: warm dry no rash Neuro: General: patient oriented x3, no focal motor deficits and CN's II-XI intact bilaterally Extrem: Other: no deformity noted over the right lower extremity, the limb is not shortened nor rotated, she has no palpable pain over lateral right hip, pain elicited when she tries to move the extremity or bear weight. Psych: Other: Tearful, cooperative Course Reevaluation(s) Reevaluation #1: Spoke with the patient and her daughter who is at bedside, they both are in agreement that they should speak with case management in regard to her frequent falls and need for a temporaryhigher level of care versus services to the home. Time: 20:07 Medications Administered Generic Name Dose Route Start Last Admin Trade Name Freq PRN Reason Stop Dose Admin Oxycodone HCl 5 mg 09/22/24 22:31 09/22/24 22:41 Oxycodone Hcl Immed Release 5 Mg Tablet PO 5 mg Q6H PRN Administration Pain, Moderate(Pain Scale 4-6) Discontinued Medications Generic Name Dose Route Start Last Admin Trade Name Freq PRN Reason Stop Dose Admin Diphtheria/Tetanus/Acell Pertussis 0.5 ml 09/22/24 18:28 09/22/24 18:48 Diphth,Pertus(Acell),Tet Adult 0.5 Ml Syringe IM 09/22/24 18:29 0.5 ml .ONCE ONE Administration Acetaminophen 1,000 mg in 100 mls @ 400 mls/hr 09/22/24 17:40 09/22/24 18:28 Ofirmev IV 09/22/24 17:54 400 mls/hr ONCE ONE Administration Lidocaine/Epinephrine 10 ml 09/22/24 18:39 09/22/24 18:52 Lidocaine Hcl 1%/Epi 1:100,000 10 Ml Vial INFILTRATI 09/22/24 18:40 10 ml ONCE ONE Administration Morphine Sulfate 4 mg 09/22/24 17:40 09/22/24 18:27 Morphine Sulfate 4 Mg/Ml Cartridge IVPUSH 09/22/24 17:41 4 mg ONCE ONE Administration Protocol Ondansetron HCl 4 mg 09/22/24 17:40 09/22/24 18:28 Ondansetron Hcl 4 Mg/2 Ml Vial IVPUSH 09/22/24 17:41 4 mg ONCE ONE Administration Medical Decision Making Medical Decision Making MDM Narrative: 88-year-old female with a history of mood disorder and essential thrombocytosis, on aspirin daily, presents after fall at home. Patient states she tripped over rug [place] onto her right side. Patient did strike the right side of her head on a chair, she sustained a laceration. There was no loss of consciousness, the patient was able to get up off the floor and ambulate to some degree. Patient having severe right hip pain When she attempts to bear weight. Denies headache, neck pain, dizziness, nausea, vomiting. Denies preceding palpitations, chest pain or shortness of breath. tetanus not up-to-date. Problem: Age History: Per patient I have considered the following differential diagnoses: Intracranial hemorrhage, cervical spine injury, contusion, fracture, dislocation Plan: Given age and she is on aspirin, I will be scanning her head and neck. It is reassuring that she is mentally at her baseline without neurologic deficits to suggest an intracranial hemorrhage. She has no complaint of neck pain. I suspect given she has the ability to bear weight to some degree, and there was no deformity of the right lower extremity, that she may have a pubic rami fracture. We will obtain x-rays of the hip and pelvis. Giving morphine and Tylenol for pain, we will obtain screening labs in the event that the patient has sustained an injury that would require additional intervention and/or hospital admission. I have independently reviewed the following tests: Labs: no electrolyte abnormalities X-ray right hip and pelvis: XR/XR hip RT w PEL1V IMPRESSION: 1. Right hip and pelvis: Minimally displaced fracture of the right superior ramus extending into the right pubic bone. 2. Right total hip arthroplasty without complication by x-ray. CT brain and c spine: CT/CT cervical spine wo IV con IMPRESSION: No acute intracranial pathology. No acute fracture subluxation cervical spine. Lab Data 09/22/24 18:22 09/22/24 18:22 Labs: Lab Results 09/22/24 Range/Units 18:22 WBC 6.6 (4.8-10.8) X10*3/uL RBC 3.04 L (4.20-5.50) X10*6/uL Hgb 12.0 (12.0-16.0) g/dl Hct 34.9 L (37.0-47.0) % MCV 114.8 H (80.0-98.0) fL MCH 39.5 H (27.0-33.0) pg MCHC 34.4 (31.0-35.0) g/dl RDW 12.1 (11.0-16.0) % Plt Count 284 (160-400) X10*3/uL MPV 9.4 (9.4-12.3) fL Immature Gran % (Auto) 0.6 H (0.0-0.4) % Neut % (Auto) 77.1 H (45-73) % Lymph % (Auto) 13.3 L (20-40) % [place] % (Auto) 7.9 (2-11) % Eos % (Auto) 0.9 (0-4) % Baso % (Auto) 0.2 (0-2) % Lymph # (Auto) 0.9 L (1.2-4.9) X10*3/uL [place] # (Auto) 0.5 (0.1-1.2) X10*3/uL Eos # (Auto) 0.1 (0.0-0.4) X10*3/uL Baso # (Auto) 0.0 (0.0-0.2) X10*3/uL Abs Immat Gran (auto) 0.04 H (0.00-0.03) X10*3/uL Absolute Neuts (auto) 5.1 (2.0-8.3) x10*3/uL Absolute Nucleated RBC 0.000 (0.0-0.012) X10*3/uL Nucleated RBC % (auto) 0.0 (0.0-0.2) /100WBC Smear Tech's Comments VERIFIED Sodium 138 (135-145) mmol/L Potassium 3.9 (3.3-5.1) mmol/L Chloride 104 (96-108) mmol/L Carbon Dioxide 23 (22-29) mmol/L Anion Gap 15 (12-20) BUN 14 (9-16) mg/dL Creatinine 0.72 (0.5-1.4) mg/dL Estim Creat Clear Calc 52.0 Estimated GFR > 60 Random Glucose 109 (60-115) mg/dL Calcium 9.2 D (8.4-10.2) mg/dL Magnesium 2.2 (1.6-2.6) mg/dL Discharge Plan Discharge Clinical Impression: Closed fracture of pubic ramus Patient Disposition: Still a Patient Prescriptions: No Action hydroxyurea 500 mg capsule 1,000 mg PO DAILY venlafaxine 37.5 mg capsule,extended release 24hr 37.5 mg PO DAILY multivitamin Tablet 1 tab PO DAILY aspirin 81 mg Tablet,Delayed Release (Dr/Ec) 81 mg PO DAILY Print Language: Filipino
[2024-09-22] MEDS: Morphine Sulfate 4 MG/ML CARTRIDGE IVPUSH (18:27)
[2024-09-22] MEDS: Acetaminophen 1,000 MG/100 ML PIGGYBACK 400 MG IV (18:28)
[2024-09-22] MEDS: ondansetron HCL 4 MG/2 ML VIAL IVPUSH (18:28)
--- NOTE | 2024-09-22 18:32 | ECG_ITS ---
Test Reason : FALL Blood Pressure : / mmHG Vent. Rate : 076 BPM Atrial Rate : 076 BPM P-R Int : 196 ms QRS Dur : 078 ms QT Int : 406 ms P-R-T Axes : 070 022 026 degrees QTc Int : 456 ms Normal sinus rhythm Normal ECG When compared with ECG of 04-JUL-2024 20:10, Premature ventricular complexes are no longer Present [place] interval has decreased QT has lengthened Referred By: Bernadette Garza Electronically Signed By:EDISON HICKEY MD
[2024-09-22 18:34] VITALS: BP 133/70; PULSE 81; RESP 16; TEMP 36.6; O2SAT 97
[2024-09-22] MEDS: Diphth,Pertus(ACell),Tet Adult 0.5 ML SYRINGE IM (18:48)
[2024-09-22 18:52] LABS: Anion Gap 15 (12-20); Blood Urea Nitrogen 14 mg/dL (9-16); Calcium 9.2 mg/dL (8.4-10.2); Carbon Dioxide 23 mmol/L (22-29); Chloride 104 mmol/L (96-108); Estimated Glomerular Filt Rate > 60; Glucose Random 109 mg/dL (60-115); Magnesium 2.2 mg/dL (1.6-2.6); Potassium 3.9 mmol/L (3.3-5.1); Sodium 138 mmol/L (135-145)
[2024-09-22] MEDS: Lidocaine HCl 1%/Epi 1:100,000 10 ML VIAL INFILTRATI (18:52)
[2024-09-22 19:00] LABS: Basophils Percent Auto 0.2 % (0-2); Eosinophils Absolute Auto 0.1 X10*3/uL (0.0-0.4); Eosinophils Percent Auto 0.9 % (0-4); Hematocrit 34.9 % (37.0-47.0); Imm Gran Abs Auto 0.04 X10*3/uL (0.00-0.03); Imm Gran Pct Auto 0.6 % (0.0-0.4); Lymphocytes Absolute Auto 0.9 X10*3/uL (1.2-4.9); Lymphocytes Percent Auto 13.3 % (20-40); Mean Corpuscular HGB Conc 34.4 g/dl (31.0-35.0); Mean Corpuscular Hemoglobin 39.5 pg (27.0-33.0); Mean Platelet Volume 9.4 fL (9.4-12.3); Monocytes Absolute Auto 0.5 X10*3/uL (0.1-1.2); Monocytes Percent Auto 7.9 % (2-11); Neutrophils Absolute Auto 5.1 x10*3/uL (2.0-8.3); Neutrophils Percent Auto 77.1 % (45-73); Platelet Count 284 X10*3/uL (160-400); Red Blood Count 3.04 X10*6/uL (4.20-5.50); Red Cell Distribution Width 12.1 % (11.0-16.0); White Blood Count 6.6 X10*3/uL (4.8-10.8)
[2024-09-22 19:05] LABS: MANUAL DIFF FLAG SCAN; Mean Corpuscular Volume 114.8 fL (80.0-98.0)
[2024-09-22 19:26] LABS: SLIDE REVIEW VERIFIED
--- NOTE | 2024-09-22 21:28 | MHC.CM.ED ---
CM met with patient and her daughter and son-in-law. Pt had a trip and fall today at home. Pt lives alone in independent living. She drives. She is very independent. She has no services and uses no DME. She was out jessica shopping today and felt well. She has a right pelvic fx. Cannot bear weight. Painful. PT is pending. HCP completed. Mirela Orozco, HCP/daughter ([phone]) and HCP #2/son Jacob Jimenez ([phone]). PCP is Chelsea Jewell [facility] WAITER. Will place referrals to acute rehab. Pt is an excellent candidate for acute rehab and would benefit from increased rehab to return to previous independent life style. Pt does not have a qualifying stay for STR. Family aware of 3 midnight stay and need to pay for STR privately. Contact card given.
[2024-09-22] MEDS: oxyCODONE HCl Immed Release 5 MG TABLET PO (22:41)
[2024-09-22 22:57] VITALS: BP 138/77; PULSE 73; RESP 20; TEMP 36.4; O2SAT 94
--- NOTE | 2024-09-22 23:00 | PC.NURSE ---
This securities underwriter assumed care of this Pt at 1900. Pt A&Ox3, reports right hip pain, Pt medicated per DEC. Pt switched over to hospital bed, madeleine in place.
--- NOTE | 2024-09-23 01:20 | PC.NURSE ---
Pt SpO2 87% on RA while sleeping, Pt woken up and SpO2 increased to 97%. MELINDA Kendall made aware, no new orders at this time.
[2024-09-23 05:35] VITALS: BP 117/61; PULSE 81; RESP 12; TEMP 36.8; O2SAT 93
[2024-09-23] MEDS: oxyCODONE HCl Immed Release 5 MG TABLET PO ×3 (06:07→17:54)
[2024-09-23 07:54] VITALS: BP 117/61; PULSE 81; O2SAT 93
--- NOTE | 2024-09-23 09:21 | PC.NURSE ---
Med rec done by this RN using pts med list/ info
--- NOTE | 2024-09-23 11:11 | PHA.MEDREC ---
Pharmacy Consult ? Medication Reconciliation RN has completed the medication reconciliation, pharmacy reviewed.
[2024-09-23] MEDS: Acetaminophen 325 MG TABLET 650 MG PO (11:31)
[2024-09-23] MEDS: Hydroxyurea 500 MG CAPSULE 1000 MG PO (11:31)
[2024-09-23] MEDS: Aspirin Enteric Coated 81 MG TABLET.DR PO (11:31)
[2024-09-23] MEDS: Multivitamin TABLET 1 TAB PO (11:31)
[2024-09-23] MEDS: Venlafaxine HCl ER 37.5 MG CAP.ER.24H PO (11:31)
--- NOTE | 2024-09-23 11:50 | MHC.CM.PN ---
Addendum entered by Tamera Jensen 09/23/24 15:39: [facility] HAS OFFERED A BED WITH RESULTS OF CT SCAN REVIEWED. BLS TRANSPORT BOOKED FOR 5:30 PM [facility]IA [facility]. DAUGHTER/PT NOTIFIED. PROVIDER UPDATED. Original Note: PT WAS SEEN BY [facility] RECOMMENDED ACUTE REHAB. [facility] ([facility]) HAS REQUESTED A CT SCAN OF PELVIS/HIP TO R/O ANY FX. PROVIDER UPDATED. DAUGHTER AND PT UPDATED AT BEDSIDE IN ED AND CM WILL AWAIT CT SCAN RESULTS.
--- NOTE | 2024-09-23 14:28 | PC.NURSE ---
Care of Pt assumed at approx. 1415. Pt is alert and oriented with family at bedside. No complaints offered at this time. Awaiting CT results.
[2024-09-23 15:13] VITALS: BP 97/45; PULSE 71; RESP 16; TEMP 36.6; O2SAT 92
--- NOTE | 2024-09-23 17:20 | PC.NURSE ---
Call placed to [facility] @ [phone]. Spoke with RN Carrie to given RN to ply cutter report. Carrie given the opportunity for questions and all questions answered to satisfaction. Awaiting ambulance transportation--scheduled for [id number].
[2024-09-23 19:26] VITALS: BP 97/45; PULSE 71; RESP 16; TEMP 36.6; O2SAT 92
== END 2024-09-23 19:00 | disposition skilled nursing facility (03) ==
PROVIDERS: Physician Assistant Medical; Emergency Provider Emergency Medicine
DX: M25.551 Pain in right hip (principal); Z23 Encounter for immunization; Z79.899 Other long term (current) drug therapy; S32.511A Fracture of superior rim of right pubis, initial encounter for closed fracture; S01.81XA Laceration without foreign body of other part of head, initial encounter; W01.190A Fall on same level from slipping, tripping and stumbling with subsequent striking against furniture, initial encounter; Y93.9 Activity, unspecified; Y92.9 Unspecified place or not applicable; Y99.9 Unspecified external cause status
CPT/HCPCS: 12011; 36415; 70450; 72125; 72192; 73502; 80048; 83735; 85025; 90471; 90715; 93005; 96365; 96375; 97163; 99284; 99285; J0131; J2004; J2270; J2405

== ENCOUNTER → 2024-09-22 18:32 | Outpatient (BNV) | payer MEDICARE, SELFPAY | PROVIDERS: Emergency Provider Emergency Medicine; Visit Provider Internal Medicine Cardiovascular Disease | DX: I49.3 Ventricular premature depolarization (principal) | CPT/HCPCS: 93010 ==